=== PATIENT | male | born 1960 | race Caucasian/White ===

== ENCOUNTER 2018-06-18 13:45 | Inpatient (IN) | payer OTHER ==
[~2018-06-18] VITALS: Ht 177.8 cm; Wt 152.9 kg
--- NOTE | ~2018-06-18 | EKG ---
[address] [address] ELECTROCARDIOGRAM REPORT Name: KARI MAYO Room #: 455-P ADM IN M.R.#: [id number] Admission: 06/18/18 Attend Phys: Tao Loza MD Discharge: Date of : 60 Report #: [id number] THIS REPORT FOR: //name// [facility] Test Date: 2018-06-18 Test Time: 18:47:43 Pat Name: KARI MAYO Department: Room: 455 P Gender: M Records And Tape Recordings Engineer: Cee SANTIAGO : 1960 Requested By: Tao Loza Order Number: [id number] MD: Gigi Farley Measurements Intervals [place] Rate: 87 P: 60 MD: 175 QRS: -77 QRSD: 167 T: 47 QT: 429 QTc: 516 Interpretive Statements Sinus rhythm Left atrial enlargement Right bundle branch block Inferior infarct, age indeterminate No previous ECG available for comparison Electronically Signed On 06-19-2018 8:49:44 CDT by Gigi Farley [email or web address] <ELECTRONICALLY SIGNED> By: Gigi Farley MD, [facility] 06/19/18 0849 1847 46 Gigi Farley MD, FACC /EPI
--- NOTE | ~2018-06-18 | HC ---
[facility] [place] [address] CONSULTATION Name: KARI MAYO Room #: 455-P [facility] IN M.R.#: [id number] Admission: 06/18/18 Attend Phys: Tao Loza MD Discharge: Date of : 60 Report #: [id number] THIS REPORT FOR: //name// CC: Tao Loza DATE OF SERVICE: 06/21/2018 HISTORY OF PRESENT ILLNESS: This is a 57-year-old male patient who was evaluated by me for any neurological etiology for the patient's falls. The patient has a pretty complicated history. He used to live in [place]. He went to a neurologist in [place]. 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 He was given gammaglobulin. He thought that gammaglobulin helped some. Now, he is having recurrent falls. He indicates that his knees locked up when he falls. It typically happens when he is on them for some time. If he is working and standing for a long time, the knee will tend to lock up. His history is not very clear, but that is the best history he can give. He is a diabetic and his diabetes is uncontrolled. REVIEW OF SYSTEMS: Indicate that he has a history of depression, hyperlipidemia, morbid obesity, peripheral neuropathy, renal cell carcinoma, COPD, carpal tunnel syndrome. Records indicate he also has a history of alcohol abuse. That was his relevant 14-point review of systems. PAST MEDICAL HISTORY: Positive for a diagnosis of CIDP, but he is also a diabetic. FAMILY HISTORY: Negative for any hereditary neuropathy. SOCIAL HISTORY: He still drives [employer]. He smokes and he has a prior history of using alcohol. PHYSICAL EXAMINATION: Indicate he is alert, responsive, able to follow simple commands. He is a large individual and is morbidly obese. He is oriented. His speech, concentration, fund of knowledge and memory is at his baseline. Cranial nerve examination 2-12 looks unremarkable. His sensation is markedly diminished. He has markedly diminished position sense in both lower extremities. His vibration sense is absent at least in knee in both lower extremities. His pinprick also is absent in both lower and distal portion of upper extremities. He is somewhat weak in all 4 extremities, but in symmetrical fashion. His pulses are palpable and his tone is normal. There is no carotid bruit. I could not look at the patient's fundus. His cardiac examination is unremarkable. No respiratory difficulty or rhonchi clinically, but he becomes short of breath when he tries to walk. His blood pressure is 119/69, respiration is 20, pulse is 85, temperature is 98.1. LABORATORY DATA: His last sed rate was 38. [facility] [address] [place] [address] CONSULTATION Name: KARI MAYO Room #: 455-P [facility] IN M.R.#: [id number] Admission: 06/18/18 Attend Phys: Tao Loza MD Discharge: Date of : 60 Report #: [id number] IMPRESSION: Peripheral neuropathy. He is diabetic and that will cause neuropathy. It becomes very difficult to make the diagnosis of chronic inflammatory demyelinating polyneuropathy in the presence of diabetes. He also has history of alcohol abuse that may have contributed to neuropathy in the past. If we need to address the question of chronic inflammatory demyelinating polyneuropathy, he will need a spinal tap. Even spinal tap is not very accurate, but if his protein is very high, then the diagnosis of chronic inflammatory demyelinating polyneuropathy can be considered and he can be given gammaglobulin. If protein is normal, then I do not believe the chronic inflammatory demyelinating polyneuropathy will be high on the list. We will send some workup to rule out other etiologies for neuropathy. Neuropathy is only one of his problem. The other one may be that he is developing respiratory difficulty including sleep apneas and other etiology, which is causing him shortness of breath. I cannot exclude any central nervous system etiologies including in the brain and thoracic spine, and I think some time along the line he should have an MRI in that area to exclude that. He also needs a lot of systemic workup, which we will defer to you. I will discuss this patient with you before ordering any testing, but our plan can be followed. More than 50 minutes of time was spent taking care of this patient today and majority of that time was spent counseling the patient and coordinating his care. I will discuss the patient with you. <ELECTRONICALLY SIGNED> By: Gage Mart MD 06/21/18 1711 0912 1224 Gage Mart MD /nt
[~2018-06-18 13:45] MED LIST: AMBIEN 10 MG TA10 MG PO; FAMCYCLOVIR 50500 M1 PO; GLIPIZIDE ER10 MG PO; GLUCOPHAGE1000 MG PO; MEDROL DOSPAK21 TAB PO; NORCO 5-325 TA1 EACH PO; PRAVACHOL40 MG PO
[2018-06-18 14:23] VITALS: BP 118/79
[2018-06-18] MEDS ORDERED: PLAVIX 75 MG TA75 M1 PO (16:24)
[2018-06-18] MEDS ORDERED: LIPITOR80 MG PO (16:25)
[2018-06-18] MEDS ORDERED: ZESTORETIC 20-1 EACH PO (16:25)
[2018-06-18] MEDS ORDERED: DULOXETINE HCL60 MG PO (16:26)
[2018-06-18] MEDS ORDERED: MS CONTIN 30 MG30 MG PO (16:27)
[2018-06-18] MEDS ORDERED: PERCOCET 10-321 EAC1 PO (16:37)
[2018-06-18 18:02] LABS: ABSOLUTE NEUTROPHILS 6.7 thou/uL (1.4-8.2); BASOPHILS 0.3 % (0.0-2.0); EOSINOPHILS 5.4 % (0.0-3.0); HEMOGLOBIN 13.4 gm/dL (14.0-18.0); LYMPHOCYTES 23.6 % (24.0-44.0); MCH 28.5 pg (26.0-34.0); MCHC 33.5 g/dL (28.0-37.0); MONOCYTES 9.5 % (1.0-8.0); PLATELET COUNT 283 thou/uL (150-400); POLYS 61.2 % (36.0-66.0); RBC 4.71 mil/uL (4.50-6.00); RDW 15.9 % (10.5-14.5)
[2018-06-18 18:15] LABS: ANION GAP 11 mmol/L (7-16); BUN 29 mg/dL (7-18); CALCIUM 8.6 mg/dL (8.5-10.1); CHLORIDE 99 mmol/L (98-107); CO2 25 mmol/L (21-32); CREATININE 1.5 mg/dL (0.7-1.3); GLUCOSE 377 mg/dL (74-106); POTASSIUM 4.3 mmol/L (3.5-5.1); SODIUM 135 mmol/L (136-145)
[2018-06-18 18:16] LABS: BE(vivo) -1.6 mmol/L (-2 to +3); HCO3 24.1 mmol/L (22.0-26.0); PCO2 44.1 mmHg (35.0-45.0); PO2 66.5 mmHg (80.0-100.0); pH 7.355 (7.360-7.450); sO2 92.3 % (92.0-98.0)
[2018-06-18 18:20] LABS: ALBUMIN 2.9 g/dL (3.4-5.0); DIRECT BILIRUBIN < 0.1 mg/dL (<0.1-0.3); SGOT 16 U/L (15-37); SGPT 23 U/L (30-65); TOTAL BILIRUBIN 0.3 mg/dL (<0.1-1.0); TOTAL PROTEIN 6.5 g/dL (6.4-8.2)
[2018-06-18 18:43] LABS: FOLIC ACID 8.1 ng/mL (8.6-58.9); TSH 0.768 uIU/mL (0.358-3.740)
[2018-06-18 20:23] VITALS: BP 114/71
[2018-06-19 03:23] VITALS: BP 137/78
[2018-06-19 03:25] LABS: URINE BILIRUBIN NEGATIVE (Negative); URINE BLOOD TRACE (Negative); URINE CLARITY CLEAR; URINE COLOR YELLOW; URINE GLUCOSE-RANDOM* 3+ (Negative); URINE KETONES NEGATIVE (Negative); URINE LEUKOCYTES-REFLEX NEGATIVE (Negative); URINE NITRITE-REFLEX NEGATIVE (Negative); URINE PROTEIN (DIPSTICK) 2+ (Negative); URINE UROBILINOGEN 0.2 E.U./dl (0.2-1.0)
[2018-06-19 03:34] LABS: AMP/METHAMP Negative (Negative); BARBITURATES Negative (Negative); BENZODIAZEPINES Negative (Negative); COCAINE Negative (Negative); METHADONE Negative (Negative); OPIATES POSITIVE (Negative); PCP Negative (Negative)
[2018-06-19 03:44] LABS: BACTERIA-REFLEX None Seen /HPF (None Seen); CASTS None Seen /LPF (None Seen); CRYSTALS None Seen /LPF (None Seen); MUCUS None Seen strn/LPF (None Seen); SQUAMOUS None Seen /LPF (0-3); URINE RBC None Seen /HPF (0-2); URINE WBC-REFLEX None Seen /HPF (0-5)
[2018-06-19 07:40] VITALS: BP 134/78
[2018-06-19 14:31] VITALS: BP 117/81
[2018-06-19 19:07] LABS: GLYCOHEMOGLOBIN (HGB A1C) 11.5 % (4.8-5.6)
[2018-06-19 19:29] VITALS: BP 150/81
[2018-06-19] MEDS ORDERED: LEVEMIR INJECTION (20:44)
[2018-06-20 05:02] VITALS: BP 143/93
[2018-06-20 07:35] VITALS: BP 142/74
[2018-06-20 12:50] VITALS: BP 147/80
[2018-06-20 21:32] VITALS: BP 112/81
[2018-06-21 03:44] VITALS: BP 119/69
[2018-06-21 07:40] VITALS: BP 123/84
[2018-06-21 19:22] VITALS: BP 120/54
[2018-06-22 03:30] VITALS: BP 125/73
[2018-06-22 07:30] VITALS: BP 121/58
[2018-06-22 11:05] LABS: IgA 427 mg/dL (90-386); IgG 933 mg/dL (700-1600); IgM 34 mg/dL (20-172)
[2018-06-22 15:37] VITALS: BP 137/78
[2018-06-22 20:21] VITALS: BP 120/59
[2018-06-22 20:32] VITALS: BP 150/79
[2018-06-23 04:08] VITALS: BP 126/67
[2018-06-23 08:00] VITALS: BP 135/80
[2018-06-23 13:13] LABS: HIV ANTIBODY Non Reactive (Non Reactive); SYPHILIS AB Negative (Negative)
[2018-06-23 15:00] VITALS: BP 139/65
[2018-06-23 15:08] LABS: HAV IgM AB (ANTI-HAV IgM) Negative (Negative); HEPATITIS B SURFACE AG Negative (Negative); HEPATITIS C VIRUS AB <0.1 (0.0-0.9)
[2018-06-23] MEDS ORDERED: NICOTINE1 EAC2 TRANSDERM (16:07)
[2018-06-23] MEDS ORDERED: LISINOPRIL20 MG PO (16:08)
[2018-06-23] MEDS ORDERED: VISTARIL 25 MG25 M1 PO (16:18)
[2018-06-23] MEDS ORDERED: CYMBALTA30 MG PO (16:18)
[2018-06-23] MEDS ORDERED: MUCINEX600 MG PO (16:19)
[2018-06-23] MEDS ORDERED: HYDROCHLOROTH12.5 M1 PO (16:19)
[2018-06-23] MEDS ORDERED: PREDNISONE 5 MG5 M1 PO (16:20)
[2018-06-23 17:13] VITALS: BP 139/65
== END 2018-06-23 17:57 | disposition home or self-care (01) | DRG 183 ==
LOC: 4W 13:45 → ENTRNSPT 06-23 17:26 → 4W 06-23 17:57
PROVIDERS: Internal Medicine; Psychiatry & Neurology Neuromuscular Medicine
DX: S22.41XA Multiple fractures of ribs, right side, initial encounter for closed fracture (principal); J18.9 Pneumonia, unspecified organism; Z68.42 Body mass index [BMI] 45.0-49.9, adult; G61.81 Chronic inflammatory demyelinating polyneuritis; J44.1 Chronic obstructive pulmonary disease with (acute) exacerbation; J44.0 Chronic obstructive pulmonary disease with (acute) lower respiratory infection; E11.42 Type 2 diabetes mellitus with diabetic polyneuropathy; F32.9 Major depressive disorder, single episode, unspecified; E78.5 Hyperlipidemia, unspecified; E66.01 Morbid (severe) obesity due to excess calories; R29.6 Repeated falls; I25.10 Atherosclerotic heart disease of native coronary artery without angina pectoris; M47.892 Other spondylosis, cervical region; M47.896 Other spondylosis, lumbar region; F10.21 Alcohol dependence, in remission; K21.9 Gastro-esophageal reflux disease without esophagitis; E86.0 Dehydration; N18.2 Chronic kidney disease, stage 2 (mild); E11.22 Type 2 diabetes mellitus with diabetic chronic kidney disease; I12.9 Hypertensive chronic kidney disease with stage 1 through stage 4 chronic kidney disease, or unspecified chronic kidney disease; G47.33 Obstructive sleep apnea (adult) (pediatric); M48.02 Spinal stenosis, cervical region; F17.210 Nicotine dependence, cigarettes, uncomplicated; M48.061 Spinal stenosis, lumbar region without neurogenic claudication; W18.39XA Other fall on same level, initial encounter; Y93.89 Activity, other specified; Y92.098 Other place in other non-institutional residence as the place of occurrence of the external cause; Y99.8 Other external cause status; Z85.528 Personal history of other malignant neoplasm of kidney; Z90.5 Acquired absence of kidney; Z71.6 Tobacco abuse counseling; Z79.899 Other long term (current) drug therapy; Z82.49 Family history of ischemic heart disease and other diseases of the circulatory system
CPT/HCPCS: 10045; 10047